=== PATIENT | female | born 1995 | race Caucasian/White ===

== ENCOUNTER 2021-03-18 14:11 | Emergency (ER) | payer MEDICAID, OTHER ==
[~2021-03-18] VITALS: Ht 165.1 cm; Wt 111.4 kg
[2021-03-18] MEDS ORDERED: KETOROLAC 30 MG/ML 1ML VIAL IV ONE (16:20)
[2021-03-18 16:59] LABS: BASO # 0.1 10^3/uL (0.0-0.2); BASO % 1.2 % (0.0-1.0); EOS # 0.2 10^3/uL (0.0-0.5); EOS % 3.3 % (0.0-3.0); HEMATOCRIT 44.4 % (36.0-47.0); HEMOGLOBIN 14.3 g/dl (12.0-15.5); LYMPH # 2.3 10^3/uL (1.5-5.0); LYMPH % 35.7 % (24.0-44.0); MEAN CORPUSCULAR HEMOGLOBIN 26.7 pg (27.0-33.0); MEAN CORPUSCULAR HGB CONC 32.2 g/dl (32.0-36.5); MEAN CORPUSCULAR VOLUME 82.8 fl (80.0-96.0); MONO # 0.4 10^3/uL (0.0-0.8); MONO % 6.1 % (2.0-8.0); NEUTROPHILS # 3.4 10^3/uL (1.5-8.5); NEUTROPHILS % 52.9 % (36.0-66.0); PLATELET COUNT, AUTOMATED 336 10^3/uL (150-450); RED BLOOD COUNT 5.36 10^6/uL (4.00-5.40); WHITE BLOOD COUNT 6.4 10^3/uL (4.0-10.0)
[2021-03-18 17:22] LABS: ERYTHROCYTE SEDIMENTATION RATE 23 mm/hr (0-20)
[2021-03-18 17:25] LABS: ALBUMIN 4.5 GM/DL (3.2-5.2); BILIRUBIN,DIRECT 0.2 MG/DL (0.0-0.2); BILIRUBIN,TOTAL 0.8 MG/DL (0.2-1.0); C REACTIVE PROTEIN QUANTITATIV 0.64 MG/DL (0.00-0.30); TOTAL PROTEIN 8.4 GM/DL (6.4-8.2)
--- NOTE | 2021-03-18 18:00 | REP ---
INDICATION: R/O DVT COMPARISON: None. TECHNIQUE: Cook scale and color Doppler evaluation right upper extremity using linear high frequency transducer. FINDINGS: Ultrasound examination of the right upper extremity demonstrates normal flow patterns without evidence for deep venous thrombosis. The contralateral subclavian vein appears normal and patent. IMPRESSION: No evidence for deep venous thrombosis. <Electronically signed by Con Hutson > 03/18/21 1080
[2021-03-18] MEDS ORDERED: PRED20TA PO (18:24)
[2021-03-18 18:39] VITALS: BP 165/98
== END 2021-03-18 18:52 | disposition home or self-care (01) ==
LOC: M ED 14:11
DX: M79.601 Pain in right arm (principal); J45.909 Unspecified asthma, uncomplicated; Z88.0 Allergy status to penicillin
CPT/HCPCS: 80047; 80076; 83605; 84702; 85025; 85652; 86140; 93971; 96374; 99284; J1885